=== PATIENT | male | born 2005 | race Caucasian/White ===

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

== ENCOUNTER → 2023-07-15 | Outpatient (CLI) | payer BC ==
[~2023-07-15] MED LIST: ISOVUE-370 76% 100ML VIAL As Ordered ONE
== END ==
LOC: M RAD 16:59
PROVIDERS: ATTEND Family Medicine
DX: R20.0 Anesthesia of skin (principal); J34.1 Cyst and mucocele of nose and nasal sinus
CPT/HCPCS: 70487; Q9967

== ENCOUNTER → 2023-07-24 | Outpatient (CLI) | payer BC ==
[~2023-07-24] MED LIST changes: -ISOVUE-370 76% 100ML VIAL As Ordered ONE; +PROHANCE 279.3MG/ML 15ML VIAL ONE
== END ==
LOC: M PLAIMG 11:53
PROVIDERS: ATTEND Physician Assistant
DX: R20.2 Paresthesia of skin (principal); J34.1 Cyst and mucocele of nose and nasal sinus
CPT/HCPCS: 70543; A9576

== ENCOUNTER → 2023-07-24 | Outpatient (CLI) | payer BC | LOC: M PLAIMG 09:54 | PROVIDERS: ATTEND Otolaryngology | DX: R20.2 Paresthesia of skin (principal); Z53.9 Procedure and treatment not carried out, unspecified reason ==

== ENCOUNTER → 2024-04-28 | Outpatient (REF) | payer BC ==
[2024-04-28 19:38] LABS: ALBUMIN 4.4 G/DL (3.2-5.2); ALKALINE PHOSPHATASE 77 U/L (46-116); ALT/SGPT 16 U/L (7.0-40); AST/SGOT 10 U/L (<34); BLOOD UREA NITROGEN 11 MG/DL (9-23); CALCIUM LEVEL 9.2 MG/DL (8.5-10.1); CARBON DIOXIDE LEVEL 29 MMOL/L (20-31); CHLORIDE LEVEL 104 MMOL/L (98-107); CHOLESTEROL LEVEL 125 MG/DL (<200); CREATININE FOR GFR 0.84 MG/DL (0.70-1.30); GLUCOSE, FASTING 88 MG/DL (60-100); HDL CHOLESTEROL 40.2 MG/DL (>40); LDL CHOLESTEROL 72.2 MG/DL (<100); NON-HDL-C 84.8 MG/DL; POTASSIUM SERUM 4.3 MMOL/L (3.5-5.1); SODIUM LEVEL 139 MMOL/L (136-145); THYROID STIMULATING HORMONE 1.311 uIU/ML (0.48-4.17); TOTAL 25(OH) VITAMIN D 38.2 NG/ML (20.0-100.0); TRIGLYCERIDES LEVEL 63 MG/DL (<150)
[2024-04-28 19:39] LABS: FREE T4 1.25 NG/DL (0.83-1.43)
== END ==
LOC: M SFHCCLAY 09:03
PROVIDERS: ATTEND Physician Assistant
DX: Z00.00 Encounter for general adult medical examination without abnormal findings (principal); F41.8 Other specified anxiety disorders